=== PATIENT | female | born 1990 | race Caucasian/White ===

== ENCOUNTER 2018-04-01 07:33 | Day surgery (SDC) | payer OTHER ==
[~2018-04-01] VITALS: Ht 162.6 cm; Wt 56.7 kg
[~2018-04-01 07:33] MED LIST: NEXIUM20 MG PO
[2018-04-01] MEDS ORDERED: MOTRIN800 MG PO (08:31)
[2018-04-01 08:41] VITALS: BP 121/69
[2018-04-01] MEDS ORDERED: TYLENOL WITH C1 EACH PO (10:26)
[2018-04-01 11:37] VITALS: BP 115/68
[2018-04-01 12:00] VITALS: BP 119/69
== END 2018-04-01 12:24 | disposition home or self-care (01) ==
LOC: SDC 07:33
DX: N80.3 Endometriosis of pelvic peritoneum (principal); R10.2 Pelvic and perineal pain; E28.2 Polycystic ovarian syndrome; J45.909 Unspecified asthma, uncomplicated; K21.9 Gastro-esophageal reflux disease without esophagitis; F17.210 Nicotine dependence, cigarettes, uncomplicated; Z88.5 Allergy status to narcotic agent; Z88.1 Allergy status to other antibiotic agents
CPT/HCPCS: J0690; J1100; J1170; J1885; J2250; J2405; J2710; J3010; J7643; Q0175; S0020